=== PATIENT | female | born 1995 | race Caucasian/White ===

== ENCOUNTER → 2021-07-02 08:49 | Outpatient (CLI) | payer OTHER, SELFPAY ==
--- NOTE | 2021-07-02 09:05 | XR_ITS ---
FINAL REPORT CLINICAL HISTORY: left wrist pain/ CTS FINDINGS: 3 views of the left wrist were obtained. There is no acute fracture or dislocation. The joint spaces are intact. There is no soft tissue abnormality. IMPRESSION: No acute abnormality. Reviewed, Interpreted and Dictated by Petr Brewster III, MD Transcribed by Diony Aquino Authenticated by Petr Brewster III, MD on 07/02/2021 10:21:49 AM [facility]
--- NOTE | 2021-07-02 09:05 | XR_ITS ---
FINAL REPORT CLINICAL HISTORY: right wrist pain/ CTS FINDINGS: 3 views of the right wrist were obtained. There is no acute fracture or dislocation. The joint spaces are intact. There is no soft tissue abnormality. IMPRESSION: No acute abnormality. Reviewed, Interpreted and Dictated by Petr Brewster III, MD Transcribed by Diony Aquino Authenticated by Petr Brewster III, MD on 07/02/2021 10:21:48 AM [facility]
== END ==
PROVIDERS: Visit Provider Orthopaedic Surgery
DX: M25.532 Pain in left wrist (principal); M25.531 Pain in right wrist
CPT/HCPCS: 73110

== ENCOUNTER 2021-07-23 07:31 | Day surgery (SDC) | payer OTHER, SELFPAY ==
[2021-07-18 10:53] VITALS: BMI 35.9
[2021-07-23 07:56] VITALS: BP 128/76; PULSE 77; RESP 18; TEMP 36.6; O2SAT 99
[2021-07-23 10:05] VITALS: TEMP 43
--- NOTE | 2021-07-23 10:05 | P.PN_ITS ---
[facility] Anesthesia Checklist - Structural Data Admitted From: Home Planned Operative Procedure/s: l carpal tunnel release Consent for Planned Operative Procedure(s) Verified: Yes - Additional verifications Anesthesia Reactions: No Hx Blood Transfusions: No Blood Transfusion Reaction: No - Airway Assessment C-Spine Mobility Assessed: Yes TMJ Mobility Assessed: Yes Dentition: Good Dentition - Neurological Assessment Level of Consciousness: Awake, Alert, Appropriate - Anesthesia Plan Anesthesia Risk discussed: Yes Anesthesia Plan: Verified ASA Class: II Anesthesia Type: Local & MAC - Preoperative Comments Pre-Operative Comments: chipped front tooth [facility] History I have reviewed the patient's past medical history: Yes Medical History: Reports:: Diabetes Mellitus Type 1 Denies:: Cancer, Diabetes Mellitus Type 2, Internal Pacemaker, MRSA, Seizures *Have you ever received a pneumonia vaccine?: No *Have you received a flu vaccine this season?: No Other Medical History: Denies: Blood Transfusion Reaction Anesthesia experience/problems:: none Other Surgeries: No: Pacemaker Amputation: No Fractures: No - *Social History Last grade of school completed: Some college Smoking Status: Never smoker Alcohol Intake: current Alcohol Intake Frequency:: holidays/special occasions only Substance Use Type: denies use *Occupational Status:: employed Housing: house Household Members: significant other *Travel in the last 8 weeks: None Family Hx:: No significant family history
[2021-07-23 10:45] VITALS: BP 133/77; PULSE 74; RESP 18; TEMP 36.6; O2SAT 96
[2021-07-23 11:00] VITALS: BP 135/80; PULSE 72; RESP 18; O2SAT 97
[2021-07-23 11:15] VITALS: BP 127/75; PULSE 69; RESP 18; TEMP 36.6; O2SAT 100
--- NOTE | 2021-07-23 14:23 | HMH.OPNOTE ---
Date of procedure: 07/23/21 Pre-op Diagnosis:: Carpal tunnel syndrome, left wrist Post-op Diagnosis:: Same Procedure performed:: Open carpal tunnel release, left wrist Surgeon:: Nehemias Manriquez MD [employer]:: Tristen Nogueira Anesthesia: MAC, local (10 mL of 0.5% Marcaine with epinephrine) Estimated blood loss (mL): 2 Clinical Note:: Patient is a 26-year-old female with bilateral carpal tunnel syndrome with long-standing symptoms. The clinical findings are consistent with the diagnosis of carpal tunnel syndrome. EMG/NCV studies at an outside facility confirmed carpal tunnel syndrome on both sides. Patient is having significant and disabling symptoms and has failed to respond adequately to conservative management. Therefore, patient has elected for surgical remediation in the form of open carpal tunnel release, on the left side to begin with. Carpal tunnel release surgery is necessary to relieve symptoms, preserve the remaining fibers of the median nerve, improve function and decrease the pain, paresthesias and weakness and to prevent permanent nerve damage. Please refer to my office note for full details. Operative findings:: The intraoperative findings showed the median nerve to be very tightly compressed and hyperemic. The flexor retinaculum was noted to be thick and tight. There was mild synovitis in the carpal tunnel. There was no evidence of any space-occupying lesions within the carpal tunnel. Operative note:: On the day of the surgery the patient was met in the preoperative area. Patient was positively identified and the operative site was marked and initialed by me. A physical examination was performed and the chart was updated. I have again discussed the procedure, risks, benefits and alternatives with the patient. The complications discussed include but are not limited to- bleeding, injury to nerves, blood vessels and tendons, infection, wound dehiscence, incomplete relief/continued pain, persistent numbness, palmar hypersensitivity, pillar pain, DVT/PE, complex regional pain syndrome(CRPS), worsening of nerve damage, failure of the condition to improve, incomplete return of function, bowstringing of tendons, weakness of oiler bander strength, recurrence, failure of the surgery to accomplish the desired goals, decreased use of the hand, loss of use of the arm, loss of the hand or arm, loss of life. Likely need for further surgery in the future has been discussed. I've indicated to the patient where the proposed incision would be made and also discussed the possibility of extending the incision if needed to accomplish an effective release. We have discussed how the goal of surgery is to protect the fibers which have remained healthy and hopefully reverse the symptoms of the fibers which are compromised but still recoverable. We have explained that, fibers that are permanently damaged will not recover. Patient asked appropriate questions and all have been answered by me. Patient wished to proceed with the surgery. Patient understood the risks, agreed to proceed with surgery and no guarantees or assurances were given or implied. The patient was brought to the operating room and placed supine on the operating table. The left upper extremity was placed over a side table. All the bony prominences were well-padded. The patient had a MAC anesthesia administered by the supervisor particleboard. A well-padded tourniquet cuff was placed over the upper arm. The left upper extremity was prepped and draped in the usual sterile fashion. A preprocedure timeout was performed as per hospital policy. Administration of prophylactic antibiotics was confirmed with the supervisor particleboard. The skin incision was marked using the Alexandre's landmarks, just ulnar to the thenar crease. I then injected 10 cc of 0.5% Marcaine with epinephrine, into the soft tissue along the line of proposed incision, for local anesthesia. The limb was exsanguinated with the Esmarch bandage and tourniquet was inflated to 250 mmHg. Pa
[2022-01-15 10:58] LABS: POC Glucose,Bedside 214 (70-110)
== END 2021-07-23 11:15 | disposition home or self-care (01) ==
PROVIDERS: PCP Family Medicine; Visit Provider Orthopaedic Surgery
PROC: (CPT 64721; principal; 2021-07-23 09:00)
DX: G56.02 Carpal tunnel syndrome, left upper limb (principal)
CPT/HCPCS: 64721; 82962; 96374